=== PATIENT | male | born 1960 | race Caucasian/White ===

== ENCOUNTER 2023-06-09 14:56 | Emergency (ER) | payer MEDICAID, SELFPAY ==
[2023-06-09 15:05] VITALS: BP 176/92; PULSE 76; O2SAT 96
[2023-06-09 15:14] VITALS: BP 140/90; PULSE 76; RESP 18; TEMP 36.4; O2SAT 94; BMI 30.8
[2023-06-09 15:30] VITALS: BP 141/95; PULSE 78; RESP 18; TEMP 36.5; O2SAT 94
[2023-06-09 16:00] VITALS: RESP 16
--- NOTE | 2023-06-09 16:34 | ED_ITS ---
HPI - Dizziness General Chief Complaint: Dizziness Stated Complaint: Dizziness Time Seen by Provider: 06/09/23 16:28 Source: patient Mode of arrival: ambulatory Limitations: no limitations History of Present Illness HPI Narrative: patient was kneeling down putting the Grout felt lightheaded and had a spinning movement lasted only for short time no nausea no vomiting no loss of consciousness patient never had similar symptoms in the past no palpitation this at this time patient feels normal denies any significant headache no head injury and patient arrived he was back to normal Related Data Previous Rx's Medication Instructions Recorded meclizine 25 mg tablet 25 mg PO TID PRN dizziness #20 tabs 06/09/23 Allergies Allergy/AdvReac Type Severity Reaction Status Date / Time No Known Allergies Allergy Verified 06/09/23 16:34 Review of Systems Review of Systems: Yes all other systems are reviewed and are negative [facility] Social History Social History Use of substances other than those prescribed or required for medical reasons: No Advance Directives: No Advance Directives Information Provided: No Physical Exam Vital Signs: Vital Signs: Last Vital Signs Temp 97.7 F 06/09/23 15:30 Pulse 78 06/09/23 15:30 Resp 16 06/09/23 16:00 BP 141/95 H 06/09/23 15:30 Pulse Ox 94 06/09/23 15:30 O2 Del Method Room Air 06/09/23 15:30 BMI result Body Mass Index 30.8 Appearance: Alert. Oriented X3. No acute distress. Eyes: PERRLA, No Nystagmus ENT: Pharynx normal. Oral Mucosa moist Neck: Normal inspection. Neck supple. CVS: Normal heart rate and rhythm. Pulses normal. Respiratory: No respiratory distress. Equal air entry bilateral, no wheezing/rales/rhonchi Abdomen: Soft and nontender. Bowel sounds are present, no mass palpable, no CVA tenderness Skin: Skin warm and dry. Normal skin color. Normal skin turgor. Extremities: No lower extremity edema. No calf tenderness Neuro: Oriented X 3. No motor deficit. No sensory deficit.No cerebellar signs , cranial nerves II-XII intact Medical Decision Making Medical Decision Making MDM Narrative: patient asymptomatic on arrival with transient dizziness clinically benign positional vertigo vitals are stable patient ambulating steady gait no signs of central cause for vertigo will discharge patient home advised to follow with PCP Differential Diagnosis Differential Diagnoses: The differential diagnosis associated with the presentation includes benign positional vertigo/CVA Discharge Plan Discharge Clinical Impression: Benign paroxysmal positional vertigo Patient Disposition: Home, Self-Care Instructions: Benign Paroxysmal Positional Vertigo (ED) Additional Instructions: Cautious as above take meds as needed for recurrence of dizziness follow up with pcp Prescriptions: New meclizine 25 mg tablet 25 mg PO TID PRN (Reason: dizziness) Qty: 20 0RF Interventions: ED Discharge Assessment Last Done: 06/09/23 17:01 Discharge Date/Time: 06/09/23 17:02 Print Language: Kazakh
== END 2023-06-09 17:02 | disposition home or self-care (01) ==
PROVIDERS: Emergency Provider Internal Medicine
DX: H81.13 Benign paroxysmal vertigo, bilateral (principal)
CPT/HCPCS: 99283; 99284